=== PATIENT | female | born 1970 ===

== ENCOUNTER → 2016-11-06 | Outpatient (CLI) | payer OTHER ==
[~2016-11-06] MED LIST: OPTIRAY 300 IV PRN
--- NOTE | 2016-11-06 15:07 | DIAGNOSTIC IMAGING REPORT ---
IVP CLINICAL HISTORY: Left flank pain. Calculus of kidney. COMPARISON STUDY: No previous studies for comparison. TECHNIQUE: Initially, overlock elastic attacher KUB was obtained. An IVP was then performed following intravenous injection of 100 cc of Optiray 300. FINDINGS: Pelvic calcifications are noted on the overlock elastic attacher KUB. The majority of these reflect phleboliths. A 3 mm left pelvic calcification is indeterminate and could reflect a nonobstructing distal left ureteral calculus. There is no hydronephrosis or hydroureter. Both nephrograms are symmetric. There are no upper tract filling defects. Bladder is unremarkable. There is no significant post void residual. IMPRESSION: 3 mm left pelvic calcification. This could reflect a nonobstructing distal left ureteral calculus although a phlebolith could appear similar. No hydronephrosis or hydroureter. Otherwise, normal IVP. Electronically signed by: Jefferson Espinoza M.D. 11/06/2016 3:06 PM Dictated Date/Time: 11/06/2016 2:51 PM
== END | disposition home or self-care (01) ==
LOC: C.RAD 12:59
PROVIDERS: ATTEND Urology
DX: N20.0 Calculus of kidney (principal); R10.9 Unspecified abdominal pain

== ENCOUNTER → 2017-09-24 | Outpatient (CLI) | payer OTHER | END | disposition home or self-care (01) | LOC: C.LABSPEC 14:42 | PROVIDERS: ATTEND Urology | DX: R10.9 Unspecified abdominal pain (principal); R31.9 Hematuria, unspecified; R30.0 Dysuria; R10.2 Pelvic and perineal pain ==

== ENCOUNTER → 2018-01-25 | Outpatient (CLI) | payer OTHER | END | disposition home or self-care (01) | LOC: C.LABSPEC 12:24 | PROVIDERS: ATTEND Urology | DX: N39.0 Urinary tract infection, site not specified (principal) ==